=== PATIENT | male | born 1990 | race Caucasian/White ===

== ENCOUNTER → 2023-05-26 | Emergency (ER) | payer OTHER, SELFPAY ==
[~2023-05-26] MED LIST: HYDROCODONE/APAP 10/325 TAB ONE; IBUPROFEN 400 MG TAB ONE; LIDOCAINE 1% MPF 5 ML VIAL ONE; MORPHINE 4 MG/ML SYR ONE; ONDANSETRON 4 MG/2 ML VIAL ONE
--- NOTE | 2023-05-26 14:28 | RAD REPORT ---
EXAM DESCRIPTION: CT - CTHCSPWOC - 05/26/2023 1:52 pm CLINICAL HISTORY: TRAUMA COMPARISON: No comparisons TECHNIQUE: Axial thin cut noncontrast CT images of the head were obtained. Axial thin cut noncontrast CT images of the cervical spine were obtained. Multiplanar reformatted images were generated and reviewed. All CT scans are performed using dose optimization technique as appropriate and may include automated exposure control or mA/KV adjustment according to patient size. FINDINGS: CT HEAD WITHOUT CONTRAST: No acute hemorrhage, hydrocephalus or extra-axial collection is identified.No areas of brain edema or midline shift. The paranasal sinuses and mastoids are clear.The calvarium is intact. Sequelae of prior trauma to the left orbit and left nasal bone with areas of hardware fixation. 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 CT CERVICAL SPINE WITHOUT CONTRAST: No fracture or subluxation.No prevertebral soft tissues swelling is identified. IMPRESSION: No acute traumatic intracranial or cervical spine findings. Incidental findings as above.
--- NOTE | 2023-05-26 14:44 | RAD REPORT ---
EXAM DESCRIPTION: CT - CTFB CLINICAL HISTORY: TRAUMA COMPARISON: No comparisons TECHNIQUE: Axial noncontrast thin cut CT images of the face were obtained with sagittal and coronal reconstruction images. All CT scans are performed using dose optimization technique as appropriate and may include automated exposure control or mA/KV adjustment according to patient size. FINDINGS: No acute facial bone fracture is seen.Sequelae of prior fractures along the hernandez of the l eft orbit with plate fixation along the superior left orbital margin, and mild expansile deformity al diego the left lamina papyracea. Healed fractures along the left nasal bone with osteophytosis at the l eft ourc-jqcjiu-wbrlgarfh junction.The mandible is intact. The globes and orbital contents are grossly unremarkable.The paranasal sinuses and mastoids are clear . IMPRESSION: No evidence of acute facial bone fracture.Sequelae of remote left facial trauma and inte rnal fixation as above.
--- NOTE | 2023-05-26 15:02 | RAD REPORT ---
EXAM DESCRIPTION: RAD - Shoulder Left 2 View - 05/26/2023 1:55 pm CLINICAL HISTORY: PAIN COMPARISON: No comparisons TECHNIQUE: Internal and external rotation views of the left shoulder were obtained. FINDINGS: There is no fracture or dislocation. AC joint is normal in appearance. No acute or suspici ous findings. IMPRESSION: Negative two-view left shoulder examination.
--- NOTE | 2023-05-26 15:54 | ER ---
Nurse's Notes [facility] [place], [place] [facility] Name: Surjit Downey Age: 33 yrs Sex: Male : 1990 Arrival Date: 05/26/2023 Time: 13:28 Bed 9 Private MD: Diagnosis: Facial laceration;Contusion of left shoulder Presentation: 05/26 13:32 Chief complaint: Patient states: Was working and struck w/ a large piece of steel, ph struck him in the L shoulder and face, abrasion and swelling to L shoulder, laceration to chin, abrasion to L cheek, denies LOC but states that he was knocked to the ground, c/o headache and shoulder pain. Coronavirus screen: Vaccine status: Patient reports being unvaccinated. Ebola Screen: No symptoms or risks identified at this time. Initial Sepsis Screen: Does the patient meet any 2 criteria? No. Patient's initial sepsis screen is negative. Does the patient have a suspected source of infection? No. Patient's initial sepsis screen is negative. Risk Assessment: Do you want to hurt yourself or someone else? Patient reports no desire to harm self or others. Onset of symptoms was May 26, 2023. 13:32 Method Of Arrival: Ambulatory ph 13:32 Acuity: CLEVE 3 ph Historical: - Allergies: 13:35 No Known Allergies; ph - PMHx: 13:35 None; ph - Immunization history:: Adult Immunizations unknown. - Social history:: Smoking status: Reported history of juuling and/or vaping. - Family history:: not pertinent. Screenin:05 [facility] ED Fall Risk Assessment (Adult) History of falling in the last 3 months, kc6 including since admission No falls in past 3 months (0 pts) Confusion or Disorientation No (0 pts) Intoxicated or Sedated No (0 pts) Impaired Gait No (0 pts) Mobility Assist Device Used No (0 pt) Altered Elimination No (0 pt) Score/Fall Risk Level 0 - 2 = Low Risk. Abuse screen: Denies threats or abuse. Denies injuries from another. Nutritional screening: No deficits noted. Tuberculosis screening: No symptoms or risk factors identified. Assessment: 14:29 General: Appears in no apparent distress. comfortable, well groomed, well developed, kc6 Behavior is calm, cooperative, appropriate for age. Pain: Complains of pain in face and left arm. Neuro: Level of Consciousness is awake, alert, obeys commands, Oriented to person, place, time, situation, Appropriate for age. Cardiovascular: Capillary refill < 3 seconds. Respiratory: Airway is patent Trachea midline Respiratory effort is even, unlabored, Respiratory pattern is regular, symmetrical. GI: No signs and/or symptoms were reported involving the gastrointestinal system. : No signs and/or symptoms were reported regarding the genitourinary system. EENT: No signs and/or symptoms were reported regarding the EENT system. Derm: Skin is pink, warm \T\ dry. Musculoskeletal: Circulation, motion, and sensation intact. Capillary refill < 3 seconds, Range of motion: intact in all extremities. Injury Description: Laceration sustained to face is clean, not bleeding, was sustained 1-2 hours ago. no active bleeding noted at this time. 15:29 Reassessment: Patient appears in no apparent distress at this time. No changes from kc6 previously documented assessment. Patient and/or family updated on plan of care and expected duration. Pain level reassessed. Patient is alert, oriented x 3, equal unlabored respirations, skin warm/dry/pink. Vital Signs: 13:32 BP 124 / 87; Pulse 78; Resp 16; Temp 98.4; Pulse Ox 100% on R/A; Weight 106.59 kg; ph Height 6 ft. 3 in. ; 13:32 Body Mass Index 29.37 (106.59 kg, 190.5 cm) ph ED Course: 13:29 Patient arrived in ED. rg4 13:35 Lisandro Shannon MD is Attending Physician. rt 13:35 Triage completed. ph 13:36 Arm band placed on. ph 13:37 Adele Gonsalez, KESHA is Primary Nurse. kc6 13:50 CT Head C Spine In Process Unspecified. EDMS 13:50 CT Facial Bones W/O Con In Process Unspecified. EDMS 13:56 Shoulder Left (2 View) XRAY In Process Unspecified. EDMS 14:05 Inserted saline lock: 18 gauge in right antecubital area, using aseptic technique. kc6 Blood collected. Patient maintains SpO2 saturation greater than 95% on room air. 14:29 Patient has correct armband on for positive identification. Bed in low position. Call kc6 light in reach. Side rails up X 1. Client placed on continuous cardiac and pulse oximetry monitoring. NIBP monitoring applied. 16:13 No provider procedures requiring assistance completed. IV discontinued, intact, kc6 bleeding controlled, No redness/swelling at site. Pressure dressing applied. Administered Medications: 14:06 Drug: morphine IVP or IV 4 mg IVP once over 4 mins Route: IVP; Infused Over: 4 mins; kc6 Site: right antecubital; 14:49 Follow up: Response: No adverse reaction; Pain is decreased; RASS: Alert and Calm (0) kc6 14:06 Drug: Ondansetron IVP 4 mg IVP once; over 2 minutes Route: IVP; Site: right antecubital;kc6 14:49 Follow up: Response: No adverse reaction kc6 15:26 Drug: Lidocaine Infiltration (1 %) 5 ml 5 ml Infiltration once; to bedside {Note: kc6 chin.} Volume: 5 ml; Route: Infiltration; 16:12 Follow up: Response: No adverse reaction; Pain is decreased kc6 15:26 Drug: Ibuprofen PO 800 mg PO once Route: PO; kc6 16:12 Follow up: Response: No adverse reaction; Pain is decreased kc6 15:26 Drug: [place] PO 10 mg-325 mg 1 tabs PO once Route: PO; kc6 16:12 Follow up: Response: No adverse reaction; Pain is decreased kc6 Medication: 16:13 VIS not applicable for this client. kc6 Outcome: 15:53 Discharge ordered by MD. rt 16:13 Discharged to home ambulatory, kc6 16:13 Condition: good 16:13 Discharge instructions given to patient, Instructed on discharge instructions, follow up and referral plans. medication usage, wound care, Demonstrated understanding of instructions, follow-up care, medications, wound care, Prescriptions given X 1, 16:13 Patient left the ED. kc6 Signatures: Dispatcher [employer] EDAysha King RN RN ph Garcia, Rubi rg4 Adele Gonsalez RN RN kc6 Lisandro Shannon MD MD rt
--- NOTE | 2023-05-26 15:54 | EDPHYS ---
Physician Documentation [facility] Name: Surjit Downey Age: 33 yrs Sex: Male : 1990 Arrival Date: 05/26/2023 Time: 13:28 Bed 9 Private MD: ED Physician Lisandro Shannon HPI: 05/26 17:40 This 33 yrs old Male presents to ER via Ambulatory with complaints of Head Injury With rt LOC-Adult, Laceration to Face. 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 He denies loss of conscious today. There is report 2 lacerations to the face, bruising to the left shoulder. Denies any other injuries or medical complaints, pain is aching nature, nonradiating, moderate in severity, no other aggravating or alleviating factors.. Historical: - Allergies: 13:35 No Known Allergies; ph - PMHx: 13:35 None; ph - Immunization history:: Adult Immunizations unknown. - Social history:: Smoking status: Reported history of juuling and/or vaping. - Family history:: not pertinent. ROS: 17:40 Constitutional: Negative for fever, chills, and weight loss, Cardiovascular: Negative rt for chest pain, palpitations, and edema, Respiratory: Negative for shortness of breath, cough, wheezing, and pleuritic chest pain, Abdomen/GI: Negative for abdominal pain, nausea, vomiting, diarrhea, and constipation, Psych: Negative for depression, anxiety, suicide ideation, homicidal ideation, and hallucinations, 17:40 MS/extremity: Positive for contusion, pain, 17:40 Skin: Positive for laceration(s), Negative for erythema, 17:40 Neuro: Positive for headache, Negative for altered mental status, Exam: 17:40 Constitutional: This is a well developed, well nourished patient who is awake, alert, rt and in no acute distress. Head/Face: Normocephalic, atraumatic. Neck: Trachea midline, no thyromegaly or masses palpated, and no cervical lymphadenopathy. Supple, full range of motion without nuchal rigidity, or vertebral point tenderness. No Meningismus. Chest/axilla: Normal chest wall appearance and motion. Nontender with no deformity. No lesions are appreciated. Cardiovascular: Regular rate and rhythm with a normal S1 and S2. No gallops, murmurs, or rubs. Normal PMI, no JVD. No pulse deficits. Respiratory: Lungs have equal breath sounds bilaterally, clear to auscultation and percussion. No rales, rhonchi or wheezes noted. No increased work of breathing, no retractions or nasal flaring. Abdomen/GI: Soft, non-tender, with normal bowel sounds. No distension or tympany. No guarding or rebound. No evidence of tenderness throughout. Neuro: Awake and alert, GCS 15, oriented to person, place, time, and situation. Cranial nerves II-XII grossly intact. Motor strength 5/5 in all extremities. Sensory grossly intact. Cerebellar exam normal. Normal gait. Psych: Awake, alert, with orientation to person, place and time. Behavior, mood, and affect are within normal limits. 17:40 Head/face: 4 cm deep laceration underneath the chin, no foreign bodies identified, 2 cm laceration to the left cheek, no foreign bodies identified. 17:40 Musculoskeletal/extremity: Contusion to the left shoulder, forage of motion, no deformities. Vital Signs: 13:32 BP 124 / 87; Pulse 78; Resp 16; Temp 98.4; Pulse Ox 100% on R/A; Weight 106.59 kg; ph Height 6 ft. 3 in. ; 13:32 Body Mass Index 29.37 (106.59 kg, 190.5 cm) ph Laceration: 17:40 Wound Repair of 4cm ( 1.6in ) full thickness laceration to chin. Linear shaped.. Distal rt neuro/vascular/tendon intact. Anesthesia: Local anesthetic administered with 4 mls of 1% lidocaine. Wound prep: Extensive cleansing by nurse. Skin closed with 9 4-0 Prolene using interrupted sutures. Dressed with 4x4's. Patient tolerated well. 17:40 Wound Repair of 2cm ( 0.8in ) subcutaneous laceration to left cheek. Linear shaped.. rt Distal neuro/vascular/tendon intact. Anesthesia: Local anesthetic administered with 1 mls of 1% lidocaine. Wound prep: Extensive cleansing by nurse. Skin closed with 3 4-0 Prolene using simple sutures and sterile technique. Dressed with 4x4's. Patient tolerated well. MDM: 13:35 Patient medically screened. rt 17:40 Differential diagnosis: Laceration, fracture, intracranial hemorrhage, concussion. Data rt reviewed: vital signs, nurses notes, radiologic studies. I considered the following discharge prescriptions or medication management in the emergency department Medications were administered in the Emergency Department. See MAR. Independent interpretation of the following test(s) in the Emergency Department CT Scan: My interpretation is No intracranial hemorrhage seen on interpretation of CT scan images. Counseling: I had a detailed discussion with the patient and/or guardian regarding the historical points, exam findings, and any diagnostic results supporting the discharge/admit diagnosis, radiology results, the need for outpatient follow up. ED course: Reports that his last tetanus immunization was within the past 5 years, does not require update. 05/26 13:40 Order name: CT Head C Spine; Complete Time: 15:02 rt 05/26 13:40 Order name: CT Facial Bones W/O Con; Complete Time: 15:02 rt 05/26 13:40 Order name: Shoulder Left (2 View) XRAY; Complete Time: 15:03 rt 05/26 13:40 Order name: Dressing - Wound; Complete Time: 14:05 rt 05/26 13:40 Order name: Gloves, Sterile; Complete Time: 14:05 rt 05/26 13:40 Order name: Setup Suture Tray; Complete Time: 14:05 rt 05/26 13:40 Order name: Wound Care; Complete Time: 14:05 rt Administered Medications: 14:06 Drug: morphine IVP or IV 4 mg IVP once over 4 mins Route: IVP; Infused Over: 4 mins; kc6 Site: right antecubital; 14:49 Follow up: Response: No adverse reaction; Pain is decreased; RASS: Alert and Calm (0) kc6 14:06 Drug: Ondansetron IVP 4 mg IVP once; over 2 minutes Route: IVP; Site: right antecubital;kc6 14:49 Follow up: Response: No adverse reaction kc6 15:26 Drug: Lidocaine Infiltration (1 %) 5 ml 5 ml Infiltration once; to bedside {Note: kc6 chin.} Volume: 5 ml; Route: Infiltration; 16:12 Follow up: Response: No adverse reaction; Pain is decreased kc6 15:26 Drug: Ibuprofen PO 800 mg PO once Route: PO; kc6 16:12 Follow up: Response: No adverse reaction; Pain is decreased kc6 15:26 Drug: [place] PO 10 mg-325 mg 1 tabs PO once Route: PO; kc6 16:12 Follow up: Response: No adverse reaction; Pain is decreased kc6 Disposition Summary: 05/26/23 15:53 Discharge Ordered Notes: Location: Home rt Problem: new rt Symptoms: have improved rt Condition: Stable rt Diagnosis - Facial laceration rt - Contusion of left shoulder rt Followup: rt - With: Private Physician - When: 7 - 10 days - Reason: Discharge Instructions: - Discharge Summary Sheet rt - Contusion rt - Facial Laceration rt Forms: - Medication Reconciliation Form rt - Thank You Letter rt - Antibiotic Education rt - Prescription Opioid Use rt - Patient Portal Instructions rt - Leadership Thank You Letter rt Prescriptions: - acetaminophen-codeine 300-30 mg Oral tablet - take 1 tablet ORAL route every 4 to 6 hours as needed for pain; 21 tablet; rt Refills: 0, Product Selection Permitted Signatures: Dispatcher [employer] Aysha Dubois RN RN ph Campbell, Kaitlyn, RN RN kc6 Lisandro Shannon MD MD rt
[2023-05-26 16:34] VITALS: BP 124/87; TEMP 98.4; O2SAT 100
== END ==
LOC: ER 13:28
PROC: 0HQ1XZZ Repair Face Skin, External Approach (ICD-10-PCS; principal; 2023-05-26)
DX: S01.81XA Laceration without foreign body of other part of head, initial encounter (principal); S01.412A Laceration without foreign body of left cheek and temporomandibular area, initial encounter; S40.012A Contusion of left shoulder, initial encounter
CPT/HCPCS: 70450; 72125; 70486; 76377; 73030; 12014; J2001; J2405